=== PATIENT | female | born 1990 | race Caucasian/White ===

== ENCOUNTER 2016-06-22 19:35 | Emergency (ER) | payer OTHER ==
[2016-06-22 20:01] VITALS: BP 101/55; PULSE 98; RESP 18; TEMP 98.3
--- NOTE | 2016-06-22 20:42 | ED ---
Skin/Abscess/FB HPI - General Chief complaint: Skin/Abscess/Foreign Body Stated complaint: Female Time Seen by Provider: 06/22/16 20:03 Source: patient, RN notes reviewed Mode of arrival: wheelchair Limitations: no limitations - History of Present Illness Initial comments: Patient is a 26-year-old female presents to the emergency room for evaluation of left labial abscess. Patient states she has a history of multiple abscesses in her vaginal area. Patient states the abscess began yesterday and got worse and more painful today. Patient denies fevers or chills. Patient denies nausea and vomiting. Patient states she's having extreme pain. - Related Data Previous Rx's Medication Instructions Recorded Amoxicillin/Potassium Clav 1 each PO Q12HR #20 tab 06/22/16 [Augmentin 875-125 Tablet] HYDROcodone/APAP 5-325MG [[place] 1 tab PO Q6HR PRN #20 tab 06/22/16 5-325] Allergies Allergy/AdvReac Type Severity Reaction Status Date / Time aspirin Allergy Rapid Verified 06/22/16 20:21 Heart Rate grass pollen Allergy Rash/Hives Verified 06/22/16 20:21 Latex, Natural Rubber Allergy Rash/Hives Verified 06/22/16 20:21 lorazepam [From Ativan] Allergy Hallucinati Verified 06/22/16 20:21 ons Milk Containing Products Allergy Abdominal Verified 06/22/16 20:21 [Dairy] Pain, NAUSEA mold Allergy Rash, Verified 06/22/16 20:21 SHORTNESS OF BREATH nickel Allergy Rash/Hives Verified 06/22/16 20:21 shellfish derived Allergy Anaphylaxis Verified 06/22/16 20:21 sulfamethoxazole Allergy Nausea & Verified 06/22/16 20:21 [From Bactrim] Vomiting trimethoprim [From Bactrim] Allergy Nausea & Verified 06/22/16 20:21 Vomiting venom-honey bee Allergy Anaphylaxis Verified 06/22/16 20:21 [bee venom (honey bee)] walnut Allergy Itching, Verified 06/22/16 20:21 RASH DUST MITES Allergy Rash/Hives Uncoded 06/22/16 20:01 Faux Metals Allergy Unknown Uncoded 06/22/16 20:01 HAY Allergy Wheezing Uncoded 06/22/16 20:01 PET DANDER Allergy SHORTNESS Uncoded 06/22/16 20:01 OF BREATH, ITCHING Review of Systems ROS Statement: Those systems with pertinent positive or pertinent negative responses have been documented in the HPI. ROS Other: All systems not noted in ROS Statement are negative. Past Medical History Past Medical History: Asthma, GERD/Reflux, Osteoarthritis (OA) Additional Past Medical History / Comment(s): CHRONIC BACK PAIN, HIDRADENITIS SUPPURATIVA, COMPLETE ANDROGEN INSENSITIVITY SYNDROME. CHRONIC MUSCLE FATIQUE, MIGRAINES, IRRITABLE BOWEL; Scoliosis; Cervical Spondylitis; Hyperallergenic; Allergic Rhinitis; Deviated Septum; Vaginal Stenosis; Carpal Tunnel Syndrome History of Any Multi-Drug Resistant Organisms: None Reported Past Surgical History: Adenoidectomy, Bowel Resection, Ear Surgery Additional Past Surgical History / Comment(s): bowel surgery,- LYSIS OF ADHESIONS ,vaginalplasty, REPAIR OF COLON- Past Anesthesia/Blood Transfusion Reactions: Postoperative Nausea & Vomiting ( PONV) Past Psychological History: ADD/ADHD, Anxiety, Depression Smoking Status: Current every day smoker Past Alcohol Use History: None Reported Additional Past Alcohol Use History / Comment(s): STARTED SMOKING AT AGE 17 SMOKES 1/2 PPD Past Drug Use History: None Reported - Past Family History Mother Sister(s) Family Medical History: Cancer Additional Family Medical History / Comment(s): BRAIN General Exam - General Exam Comments Initial Comments: Laying in exam room, no acute distress. Limitations: no limitations General appearance: alert Head exam: Present: atraumatic, normocephalic, normal inspection Eye exam: Present: normal appearance ENT exam: Present: normal exam Neck exam: Present: normal inspection Respiratory exam: Absent: respiratory distress External exam: Present: swelling (2 cm abscess over her left labia) Extremities exam: Present: normal inspection Back exam: Present: normal inspection Neurological exam: Present: alert, oriented X3, CN II-XII intact, normal gait Psychiatric exam: Present: normal affect, normal mood Skin exam: Present: warm, dry, intact, normal color. Absent: rash Course Vital Signs 06/22/16 19:58 Temperature 98.3 F Pulse Rate 98 Respiratory 18 Rate Blood Pressure 101/55 O2 Sat by Pulse 98 Oximetry Procedures - Incision & Drainage Consent Obtained: verbal consent Site: other (left labia) Size (cm): 2 Anesthetic Used: lidocaine 1% Amount (mLs): 2 I&D Cleaning Method: Alcohol Wipe Scalpel Used: #11 I&D Drainage Obtained: Pus, Blood Patient Tolerated Procedure: other (Unable to tolerate entire procedure) Medical Decision Making - Medical Decision Making Patient is a 26-year-old female presents to the emergency room for evaluation of Bartholin Cyst. I did attempt to drain Bartholin cyst. Patient was unable to tolerate the full procedure and I had to stop after first incision of 11- blade. It was explained to patient that I did not fully drain the area and that she may need to come back to have it redrained. Will place patient on antibiotics and advised to follow-up with her primary care provider or MARKETING INFORMATION COORDINATOR. Patient states she understands everything that was discussed with her. Return parameters discussed. Disposition Clinical Impression: Bartholin's gland abscess Disposition: HOME SELF-CARE Condition: Good Instructions: Abscess Incision and Drainage (ED), Bartholin Cyst (ED) Additional Instructions: Apply warm compresses or sitz baths. Take antibiotics as directed. Please follow-up with MARKETING INFORMATION COORDINATOR in 24-48 hours for reevaluation. If any new symptom arises, symptoms worsen or fever develops, return to ER as soon as possible. Prescriptions: HYDROcodone/APAP 5-325MG [[place] 5-325] 1 tab PO Q6HR PRN #20 tab PRN Reason: Pain Amoxicillin/Potassium Clav [Augmentin 875-125 Tablet] 1 each PO Q12HR #20 tab Referrals: Jean-Claude Graham MD [Primary Care Provider] - 1-2 days Time of Disposition: 21:05
[2016-06-22] MEDS ORDERED: HYDROcodone/APAP 5-325MG 1 EACH TAB PO STA (20:51)
== END 2016-06-22 21:59 | disposition home or self-care (01) ==
LOC: EC 19:35
DX: N75.1 Abscess of Bartholin's gland (principal); Z88.6 Allergy status to analgesic agent; Z88.8 Allergy status to other drugs, medicaments and biological substances; Z91.040 Latex allergy status; Z87.891 Personal history of nicotine dependence
CPT/HCPCS: 56405; 99282

== ENCOUNTER → 2016-10-19 | Outpatient (CLI) | payer OTHER ==
--- NOTE | 2016-10-20 07:13 | US ---
EXAMINATION TYPE: US abdomen complete DATE OF EXAM: 10/19/2016 5:27 PM COMPARISON: NONE CLINICAL HISTORY: R11.2 Vomiting. Nausea, Abd pain EXAM MEASUREMENTS: Liver Length: 14.6 cm Gallbladder Wall: 0.1 cm CBD: 0.2 cm Spleen: 8.1 cm Right Kidney: 10.6 x 4.7 x 4.8 cm Left Kidney: 9.8 x 5.5 x 5.2 cm Pancreas: Tail obscured by overlying bowel gas Liver: wnl Gallbladder: wnl Evidence for sonographic Charles's sign: Yes, patient states she is having pain during exam CBD: wnl Spleen: wnl Right Kidney: No hydronephrosis or masses seen Left Kidney: No hydronephrosis or masses seen Upper IVC: wnl Abd Aorta: wnl IMPRESSION: Unremarkable study
== END | disposition home or self-care (01) ==
LOC: RADUSMAIN 16:52
DX: R11.2 Nausea with vomiting, unspecified (principal)
CPT/HCPCS: 76700